=== PATIENT | female | born 1965 | race Caucasian/White ===

== ENCOUNTER 2017-02-11 08:56 | Emergency (ER) | payer BC ==
[2017-02-11 09:30] VITALS: BP 125/86
[2017-02-11] MEDS ORDERED: predniSONE 20 MG Tab PO STA (10:34)
--- NOTE | 2017-02-11 10:41 | EDM.PDOC ---
ED HPI GENERAL MEDICAL PROBLEM - General Chief Complaint: ENT Problem Stated Complaint: FEVER AND SWELLING FOR 5 WEEKS Time Seen by Provider: 02/11/17 09:22 Source of Information: Reports: Patient, Family (), RN Notes Reviewed History Limitations: Reports: No Limitations - History of Present Illness INITIAL COMMENTS - FREE TEXT/NARRATIVE: The patient states that she has had a low-grade fever (around 99) for the past 5 weeks. On 01/11/2017, she states that she developed facial and neck swelling, with difficulty swallowing. She states that she saw her PCP, Dr. Tinoco, on Sunday , 01/15/2017. He reported a CT scan of the neck and sinuses, as well as an ultrasound of the neck. She was found to have a goiter. She was prescribed Levaquin over the concern that there might be an infection, however, the patient had an adverse reaction of difficulty breathing and throat tightness. She went back to Dr. Tinoco, who prescribed a Z-Jarad. When she saw him an additional time, he refer the patient to an ENT and Outsole Rounder - she has an appointment to see the ENT on 02/20/2017, and Outsole Rounder on 03/12/2017. The patient takes acyclovir on an as-needed basis for herpes, and over concern that her symptoms might be related to esophageal herpes, she started taking acyclovir again. She is not sure if this has helped. She then saw Dr. Culver this past 02/09/2017. He barely felt that the patient's symptoms were due to a hormonal imbalance, including an elevated T4 level, therefore prescribed T3 for 30 days. The patient is to follow-up with the ENT as previously referred, then returned to him. She is to stop her Prempro , and she is not receiving any more Kenalog shots, which she receives for allergies and arthritis. In the meantime, the patient states that she found on the Internet some symptoms of diphtheria, and believes that she has all of the symptoms of diphtheria, and therefore has diphtheria. She now presents requesting testing for diphtheria. Here in the ED, the patient is afebrile. Throat Pain Score (Numeric/FACES): 3 - Related Data Allergies Allergy/AdvReac Type Severity Reaction Status Date / Time amoxicillin Allergy Swelling Verified 07/07/15 12:34 clavulanic acid Allergy Swelling Verified 07/07/15 12:35 clindamycin Allergy Shortness Verified 07/07/15 12:37 of Breath levofloxacin [From Levaquin] Allergy Airway Verified 02/11/17 09:32 Tightness ceftriaxone AdvReac Other Verified 07/07/15 12:38 escitalopram AdvReac Lethargy Verified 07/07/15 12:37 tramadol AdvReac Change Verified 07/07/15 12:36 Mental Status Home Meds: Home Meds . [No Known Home Meds] 02/11/17 [History] Past Medical History HEENT History: Reports: Allergic Rhinitis, Sinusitis Musculoskeletal History: Reports: Osteoarthritis (knees) Endocrine/Metabolic History: Reports: Hyperthyroidism (Graves disease) - Infectious Disease History Infectious Disease History: Reports: Herpes - Past Surgical History HEENT Surgical History: Reports: Eye Surgery (Bilateral, for strabismus), Naso- Sinus Surgery (Septoplasty) Social & Family History - Family History Endocrine/Metabolic: Reports: Hyperthyroidism, Hypoparathyroidism, Hypothyroidism - Tobacco Use Smoking Status *Q: Current Every Day Smoker Years of Tobacco use: 27 Packs/Tins Daily: 0.5 - Caffeine Use Caffeine Use: Reports: None - Alcohol Use Alcohol Use History: Yes Alcohol Use Frequency: Socially - Recreational Drug Use Recreational Drug Use: No - Living Situation & Occupation Living situation: Reports: , with Spouse Occupation: Unemployed ED ROS GENERAL - Review of Systems Review Of Systems: See Below Constitutional: Reports: No Symptoms HEENT: Reports: Other (Facial and neck swelling, as per the HPI) Respiratory: Reports: No Symptoms Cardiovascular: Reports: No Symptoms Endocrine: Reports: No Symptoms GI/Abdominal: Reports: No Symptoms : Reports: No Symptoms Musculoskeletal: Reports: No Symptoms Skin: Reports: No Symptoms Neurological: Reports: No Symptoms Psychiatric: Reports: No Symptoms Hematologic/Lymphatic: Reports: No Symptoms Immunologic: Reports: No Symptoms ED EXAM, NEURO - Physical Exam Exam: See Below Exam Limited By: No Limitations General Appearance: Alert, WD/WN, No Apparent Distress Eye Exam: Bilateral Eye: Normal Inspection Ears: Normal External Exam, Normal Canal, Hearing Grossly Normal, Normal TMs Nose: Normal Inspection, Normal Mucosa, No Blood Throat/Mouth: Normal Inspection, Normal Lips, Normal Teeth, Normal Gums, Normal Oropharynx, Normal Voice, No Airway Compromise Head Exam: Atraumatic, Normocephalic, Facial Swelling (mild/subtle) Neck: Supple, Non-Tender, Full Range of Motion, Other (Mild soft tissue swelling. No erythema.). No: Lymphadenopathy (L), Lymphadenopathy (R) Respiratory/Chest: No Respiratory Distress, Lungs Clear, Normal Breath Sounds, No Accessory Muscle Use Cardiovascular: Normal Peripheral Pulses, Regular Rate, Rhythm, No Gallop, No JVD, No Murmur, No Rub GI/Abdominal: Normal Bowel Sounds, Soft, Non-Tender, No Organomegaly, No Distention, No Abnormal Bruit, No Mass (Female) Exam: Deferred Rectal (Female) Exam: Deferred Neurological: Alert, No Motor/Sensory Deficits, Oriented x 3 Back Exam: Normal Inspection, Full Range of Motion, NT Extremities: Normal Inspection, Normal Range of Motion, No Pedal Edema, Normal Capillary Refill Psychiatric: Normal Affect Skin Exam: Warm, Dry, Intact, Normal Color, No Rash Course - Vital Signs Last Recorded V/S: Last Vital Signs Temp 37.3 C 02/11/17 09:21 Pulse 80 02/11/17 09:21 Resp 18 02/11/17 09:21 BP 125/86 02/11/17 09:21 Pulse Ox 99 02/11/17 09:21 - Re-Assessments/Exams Free Text/Narrative Re-Assessment/Exam: 02/11/17 10:57 The cause of the patient's facial and neck swelling is unclear - I am concerned about an anatomic inlet obstruction, however, the patient is already being worked up by Dr. Tinoco, Dr. Culver, and has appointments to follow-up with ENT on 02/20/2017 and an Outsole Rounder on 03/12/2017. The patient is here to be tested for diphtheria, however, testing for diphtheria includes scraping some of the pseudomembrane in the posterior oropharynx and nasopharynx. On examination, the patient has no such pseudomembrane, in fact, I do not see any oropharyngeal abnormalities whatsoever. I cannot therefore test her for diphtheria, as she does not have diphtheria. This was explained to the patient and her , with satisfaction. Departure - Departure Time of Disposition: 10:58 Disposition: Home, Self-Care 01 Condition: Good Clinical Impression: Facial swelling - Discharge Information Referrals: Meghan Culver [Primary Care Provider] - Forms: ED Department Discharge Additional Instructions: You were seen in the ER for facial and neck swelling, and a concern for having diphtheria. On examination, we see no pseudomembranes that would be present if you have diphtheria. We cannot test for diphtheria, as testing involves sampling the pseudomembrane, which you do not have. We recommend you keep your appointments with the ENT on 02/20/2017 and the datapower consultant on 03/12/2017. If any other problems, please do not hesitate to return to the ER.
== END 2017-02-11 11:14 | disposition home or self-care (01) ==
LOC: JD.ED 08:56
DX: R22.0 Localized swelling, mass and lump, head (principal); E05.90 Thyrotoxicosis, unspecified without thyrotoxic crisis or storm; F17.210 Nicotine dependence, cigarettes, uncomplicated; Z88.1 Allergy status to other antibiotic agents; Z88.5 Allergy status to narcotic agent; Z88.8 Allergy status to other drugs, medicaments and biological substances
CPT/HCPCS: 99282; 99283

== ENCOUNTER 2018-04-23 06:54 | Day surgery (SDC) | payer BC ==
[~2018-04-23 06:54] MED LIST: Lactated Ringers 1,000 ML IV SCH; Lidocaine 1%/Sod Bicarbonate in NS 8.4% 1 ML Syringe IDERM PRN; Sodium Chloride 0.9% 10 ML Syringe FLUSH PRN
[2018-04-23] MEDS ORDERED: Ondansetron 4 MG/2 ML SDV ONE (07:04)
[2018-04-23] MEDS ORDERED: Rocuronium 50 MG/5 ML Vial ONE (07:04)
[2018-04-23] MEDS ORDERED: Lidocaine 1% 4 ML ONE (07:04)
[2018-04-23] MEDS ORDERED: Dexamethasone 4 MG/ML 5 ML MDV ONE (07:05)
[2018-04-23] MEDS ORDERED: Propofol 200 MG/20 ML SDV ONE (07:05)
[2018-04-23] MEDS ORDERED: Midazolam 1 MG/ML 2 ML SDV ONE (07:05)
[2018-04-23] MEDS ORDERED: fentaNYL 250 MCG/5 ML SDV ONE (07:05)
[2018-04-23] MEDS ORDERED: Albuterol 0.083% 2.5 MG/3 ML Neb Soln NEB SCH (07:20)
[2018-04-23] MEDS ORDERED: Acetaminophen 325 MG Tab PO SCH (07:25)
--- NOTE | 2018-04-23 07:26 | PCM.PREANE ---
Preanesthetic Assessment - Anesthesia/Transfusion/Family Hx Anesthesia History: Prior Anesthesia Without Reaction Family History of Anesthesia Reaction: No Transfusion History: No Prior Transfusion(s) - Review of Systems General: No Symptoms Pulmonary: No Symptoms, Cough Cardiovascular: No Symptoms Gastrointestinal: No Symptoms Neurological: No Symptoms, Seizure (as a baby had seizures and went away) Other: Reports: Thyroid Problems, Sinus Problem, Depression, Anxiety - Physical Assessment NPO Status Date: 04/22/18 NPO Status Time: 21:00 Pulse: 66 O2 Sat by Pulse Oximetry: 98 Respiratory Rate: 16 Blood Pressure: 93/71 Temperature: 98.5 F Height: 5 ft 6 in Weight: 62.596 kg ASA Class: 2 Mental Status: Alert & Oriented x3 Airway Class: Mallampati = 1 Dentition: Reports: Dentures (top), Partial (bottom) Thyro-Mental Finger Breadths: 3 Mouth Opening Finger Breadths: 3 ROM/Head Extension: Full Lungs: Clear to Auscultation, Normal Respiratory Effort Cardiovascular: Regular Rate, Regular Rhythm - Lab Values: urine hcg neg this am hgb 13.7 plt 218 - Allergies Allergies/Adverse Reactions: Allergies Allergy/AdvReac Type Severity Reaction Status Date / Time amoxicillin Allergy Other Verified 04/22/18 11:49 clavulanic acid Allergy Other Verified 04/22/18 11:49 clindamycin Allergy Itching Verified 04/22/18 11:49 levofloxacin [From Levaquin] Allergy Airway Verified 04/22/18 11:49 Tightness Penicillins Allergy Other Verified 04/22/18 11:49 ceftriaxone AdvReac Other Verified 04/22/18 11:49 escitalopram AdvReac Other Verified 04/22/18 11:49 tramadol AdvReac Change Verified 04/22/18 11:49 Mental Status - Blood Blood Available: No - Acknowledgements Anesthesia Type Planned: General Anesthesia Pt an Appropriate Candidate for the Planned Anesthesia: Yes Alternatives and Risks of Anesthesia Discussed w Pt/Guardian: Yes Pt/Guardian Understands and Agrees with Anesthesia Plan: Yes PreAnesthesia Questionnaire HEENT History: Reports: Sinusitis, Other (See Below) Other HEENT History: Sore throat Cardiovascular History: Reports: None, Other (See Below) (once was told she has a murmur) Respiratory History: Reports: Other (See Below) Other Respiratory History: Cough Gastrointestinal History: Reports: Inflammatory Bowel Disease (colitis), Other ( See Below) Other Gastrointestinal History: Abdominal pain Genitourinary History: Reports: UTI, Recurrent, Other (See Below) Other Genitourinary History: Dysuria, hematuria OBSERVER ELECTRICAL PROSPECTING History: Reports: Other (See Below) Other OB/BYN History: Decreased libido, vaginal discharge, pruritis of vulva Musculoskeletal History: Reports: None Neurological History: Reports: None Psychiatric History: Reports: None Endocrine/Metabolic History: Other Endocrine/Metabolic History: Grave's disease Hematologic History: Reports: None Immunologic History: Reports: None Oncologic (Cancer) History: Reports: None Dermatologic History: Reports: None - Infectious Disease History Infectious Disease History: Reports: None - Past Surgical History Head Surgeries/Procedures: Reports: None HEENT Surgical History: Reports: Other (See Below) Other HEENT Surgeries/Procedures: Septoplasty blephroplasty Cardiovascular Surgical History: Reports: None Respiratory Surgical History: Reports: None GI Surgical History: Reports: None, Colonoscopy Female Surgical History: Reports: Breast Biopsy Endocrine Surgical History: Reports: None Neurological Surgical History: Reports: None Musculoskeletal Surgical History: Reports: None Oncologic Surgical History: Reports: None Dermatological Surgical History: Reports: None - SUBSTANCE USE Smoking Status *Q: Current Every Day Smoker (26 years) Tobacco Use Within Last Twelve Months: Cigarettes Second Hand Smoke Exposure: Yes Days Per Week of Alcohol Use: 5 Number of Drinks Per Day: 3 (beer or vodka) Total Drinks Per Week: 15 Recreational Drug Use History: No - HOME MEDS Home Medications: Home Meds ALPRAZolam [Alprazolam] 0.25 mg PO DAILY PRN 04/22/18 [History] Acyclovir 400 mg PO BID PRN 04/22/18 [History] Acyclovir [Zovirax 5% Oint] 1 applic TOP Q3H PRN 04/22/18 [History] Fluconazole [Diflucan] 150 mg PO ASDIRECTED PRN 04/22/18 [History] Levothyroxine [Sythroid] 100 mcg PO DAILY 04/22/18 [History] Liothyronine [Cytomel] 5 mcg PO DAILY 04/22/18 [History] Montelukast [Singulair] 10 mg PO BEDTIME 04/22/18 [History] Venlafaxine HCl [Venlafaxine HCl ER] 37.5 mg PO DAILY 04/22/18 [History] - CURRENT (IN HOUSE) MEDS Current Meds: Current Medications Albuterol (Proventil Neb Soln) 2.5 mg NEB ONETIME APOORVA Lactated Ringer's (Ringers, Lactated) 1,000 mls @ 125 mls/hr IV ASDIRECTED APOORVA Stop: 04/23/18 23:00 Lidocaine/Sodium Bicarbonate (Buffered Lidocaine 1% In Ns 8.4%) 0.25 ml IDERM ONETIME PRN PRN Reason: Prior to IV Start Stop: 04/23/18 18:00 Sodium Chloride (Saline Flush) 10 ml FLUSH ASDIRECTED PRN PRN Reason: Keep Vein Open Stop: 04/23/18 18:00 Discontinued Medications Dexamethasone (Dexamethasone) Confirm Administered Dose 20 mg .ROUTE .STK-MED ONE Stop: 04/23/18 07:06 Fentanyl (Sublimaze) Confirm Administered Dose 250 mcg .ROUTE .STK-MED ONE Stop: 04/23/18 07:06 Lidocaine HCl (Xylocaine-Mpf 1%) Confirm Administered Dose 4 mls @ as directed .ROUTE .STK-MED ONE Stop: 04/23/18 07:05 Midazolam HCl (Versed 1 Mg/Ml) Confirm Administered Dose 2 mg .ROUTE .STK-MED ONE Stop: 04/23/18 07:06 Ondansetron HCl (Zofran) Confirm Administered Dose 4 mg .ROUTE .STK-MED ONE Stop: 04/23/18 07:05 Propofol (Diprivan 20 Ml) Confirm Administered Dose 200 mg .ROUTE .STK-MED ONE Stop: 04/23/18 07:06 Rocuronium Lexa (Zemuron) Confirm Administered Dose 50 mg .ROUTE .STK-MED ONE Stop: 04/23/18 07:05
[2018-04-23] MEDS ORDERED: Bupivacaine 0.5% 30 ML SDV ONE (07:31)
[2018-04-23] MEDS ORDERED: ceFAZolin 1 GM Vial ONE (08:02)
[2018-04-23] MEDS ORDERED: Ketamine 500 mg/10 ML MDV ONE (08:18)
[2018-04-23] MEDS ORDERED: fentaNYL 100 MCG/2 ML SDV IVPUSH PRN (08:24)
[2018-04-23] MEDS ORDERED: Meperidine 50 MG/ML Vial IVPUSH PRN (08:24)
[2018-04-23] MEDS ORDERED: Ondansetron 4 MG/2 ML SDV IVPUSH PRN (08:24)
[2018-04-23] MEDS ORDERED: HYDROmorphone 0.5 MG/0.5 ML Syringe IVPUSH PRN (08:24)
[2018-04-23] MEDS ORDERED: Lactated Ringers 1,000 ML ONE (08:44)
[2018-04-23] MEDS ORDERED: HYDROmorphone 0.5 MG/0.5 ML Syringe ONE (09:02)
[2018-04-23] MEDS ORDERED: Ketorolac 30 MG/ML SDV ONE (09:15)
[2018-04-23] MEDS ORDERED: Neostigmine Methylsulfate 1 MG/ML 5 ML Syringe ONE (09:17)
--- NOTE | 2018-04-23 09:51 | PCM.POSTAN ---
POST ANESTHESIA ASSESSMENT - MENTAL STATUS Mental Status: Alert, Oriented - VITAL SIGNS Pulse Rate: 103 SaO2: 97 Resp Rate: 12 Blood Pressure: 119/66 Temperature: 97.7 F - RESPIRATORY Respiratory Status: Respiratory Rate WNL, Airway Patent, O2 Saturation Stable, Supplemental Oxygen - CARDIOVASCULAR CV Status: Pulse Rate WNL, Blood Pressure Stable - GASTROINTESTINAL GI Status: No Symptoms - PAIN Pain Score: 4 - POST OP HYDRATION Hydration Status: Adequate & Stable
--- NOTE | 2018-04-23 09:52 | PCM.OPNOTE ---
- General Post-Op/Procedure Note Date of Surgery/Procedure: 04/23/18 Operative Procedure(s): Laparoscopy with removal of left tube and ovary, laparoscopy with lysis of adhesions, hysteroscopy with endometrial biopsy. Pre Op Diagnosis: Postmenopausal bleeding, left lower quadrant pain, cervical stenosis Post-Op Diagnosis: Same plus adhesions peritoneal, right paratubal cyst Anesthesia Technique: General ET Tube Primary Surgeon: Goldy Lopez Secondary Surgeon: Francis Ramsey Anesthesia Provider: Germain Moran Funeral Assistant: Paige Adame (PAS) Funeral Assistant: Meghan Victor (MS4) Reason Funeral Assistant Was Necessary: Assist in surgery, retraction, decrease comorbidity and mortality Role of Funeral Assistant: Assist in surgery, retraction, decrease comorbidity and mortality Fluid Replacement, Intraop: 1,450 Output, Urine Amount: 10 EBL in mLs: 20 Drain/Tube Comments:: Briggs catheter placed during surgery and removed after surgery. Complications: None Condition: Good Free Text/Narrative:: Patient was transported to operating room and placed under general anesthesia with endotracheal intubation the low dorsal lithotomy position. SCDs in place and functioning prior surgery vancomycin 1 g given preoperatively after discussion with anesthesia and pharmacy because of her multiple allergies. At examination under anesthesia uterus anterior no adnexal masses palpated. Uterine manipulator was placed and later removed for hysteroscopy with endometrial biopsy. Briggs catheter placed gravity drainage and removed after surgery. The umbilicus was injected inferiorly with 2 mL of 0.5% Marcaine without epinephrine and a vertical incision made in pneumoperitoneum was obtained and the 5 mm trocar introduced without difficulty prompt visualization of pelvic organs was accomplished. There was a right paratubal cyst the left tube and ovary were identified no obvious abnormalities but patient has had pain on the left side for years. Her were adhesions above the cecum to the anterior abdominal wall the liver and gallbladder appeared normal. The appendix appeared normal. The anterior and posterior cul-de-sacs were normal. There was a small paratubal cyst in addition to the pedunculated paratubal cyst on the right side. Right ovary appeared atrophic consistent with patient's age. A midline incision was made transverse after injecting 2 mL of 0.5% Marcaine without epinephrine. The midline trocar 5 mm was introduced subsequently replaced with 12 mm trocar to remove the tube and ovary after surgery was completed. 5 mm trocar was also introduced in the left flank 2 fingerbreadths above and medial to the superior iliac crest. Transillumination was performed and no vessel seen injecting 2 mL of 0.5% Marcaine incision made and 5 mm trocar introduced. The uterus appeared normal. The adhesions of the colon to the anterior abdominal wall were lysed with Endo seal. The appendix appeared normal as noted above. Right paratubal cyst was then grasped and transected with the Endo seal. The left tube and ovary were then grasped the infundibulopelvic ligament crossclamped activated in size with Endo seal. Proceeding towards the uterus crossclamping activating and incising until the tube and ovary were able to be removed at the fundus of the uterus. Hemostasis was obtained no bleeding encountered. Sponge needle pack instrument and sharp count correct 2 and the midline incision was closed after having introduced the Endo bag and removing the tube and ovary through the 12 mm port. No bleeding encountered the anterior fascia was approximated with 0 Vicryl interrupted suture. The left flank 5 mm port removed without difficulty. There was no bleeding from either port removal. Pneumoperitoneum was reduced and the umbilical port removed. The incisions were closed with 3-0 Monocryl subcuticular. Dermabond applied. Hysteroscopy was then performed dilating the cervix to accommodate the hysteroscope examination of the endometrial cavity revealed no polyps, endometrium appeared atrophic. Both tubal ostia were visualized. Utilizing Christiano curet endometrial samples were attempted to be obtained however scant tissue because of the atrophic endometrium. The sponge needle pack asthma sharp count correct times one on completion of the hysteroscopy. Photographs were taken: Image 001 left round ligament and fallopian tube Image 002 shows the left ovary below the left fallopian tube Image 003 shows the paratubal cyst on the right side stalk just to the center of the manipulator. Image 004 shows better view of the stalk of the paratubal cyst at the center of the picture and right fallopian tube and tubo-ovarian ligament and round ligament at the top of the picture Image 005 shows the right ovary. Image 006 shows again right ovary and right paratubal cyst. Image 007 shows anterior cul-de-sac free of adhesions and endometriosis Image 008 shows posterior cul-de-sac with no endometriosis or adhesions Image 009 gallbladder and liver normal with no perihepatic adhesions. Image 010 shows surface of the liver and diaphragm with no adhesions Image 011 shows adhesions right lower quadrant. Image 012 shows additional adhesions in the right flank. Image 013 removal of the adhesions being accomplished with Endo seal Image 014 shows a normal appendix "J-shaped" Image 015 shows the right paratubal cyst being removed at the stalk. Image 016 shows the left adnexa after removal of the tube and ovary. Image 017 shows the midline trocar removal site with no bleeding Image 018 shows the left flank trocar removal site with no bleeding. Image 019 shows the left tubal ostium Image 020 shows the right tubal ostium Image 0-1 shows the fundus of the endometrial cavity no polyps atrophic appearing endometrium. Patient was transported postanesthesia care unit in satisfactory condition no blood transfusions were required.
--- NOTE | 2018-04-23 10:35 | PCM48HPAN ---
Post Anesthesia Note - EVALUATION WITHIN 48HRS OF ANESTHETIC Vital Signs in Normal Range: Yes Patient Participated in Evaluation: Yes Respiratory Function Stable: Yes Airway Patent: Yes Cardiovascular Function Stable: Yes Hydration Status Stable: Yes Pain Control Satisfactory: Yes Nausea and Vomiting Control Satisfactory: Yes (some nausea- alcohol wipe helped) Mental Status Recovered: Yes
[2018-04-23] MEDS ORDERED: Haloperidol Lactate 5 MG/ML SDV IVPUSH ONE (11:06)
[2018-04-23] MEDS ORDERED: Scopolamine 1.5 MG Transdermal Patch TOP SCH (11:38)
[2018-04-23 12:29] VITALS: BP 88/55
== END 2018-04-23 13:20 | disposition home or self-care (01) ==
LOC: JD.SDS 06:54
PROVIDERS: ATTEND Obstetrics & Gynecology
DX: N95.0 Postmenopausal bleeding (principal); N83.8 Other noninflammatory disorders of ovary, fallopian tube and broad ligament; N88.2 Stricture and stenosis of cervix uteri; F17.210 Nicotine dependence, cigarettes, uncomplicated; E78.5 Hyperlipidemia, unspecified; E03.9 Hypothyroidism, unspecified; F41.9 Anxiety disorder, unspecified; Z88.1 Allergy status to other antibiotic agents; Z88.0 Allergy status to penicillin; Z88.8 Allergy status to other drugs, medicaments and biological substances; Z79.899 Other long term (current) drug therapy
CPT/HCPCS: 36415; 58558; 58661; 81025; 85025; 94640; A9270; J1100; J1170; J1630; J1885; J2250; J2405; J2704; J2710; J3010; J3490; J7120; 00840; 88305; J0690; J2001

== ENCOUNTER 2022-11-27 08:25 | Day surgery (SDC) | payer BC, MEDICARE ==
[~2022-11-27 08:25] MED LIST changes: +Acetaminophen 325 MG Tab PO SCH; +Lidocaine 1% 4 ML ONE; +Morphine 8 MG, EPINEPHrine 0.3 MG, Cefuroxime 750 MG, Ketorolac 30 MG, Sodium Chloride ... PRN; +Morphine PF 10 MG/10 ML SDV ONE; +Pregabalin 25 MG Cap PO SCH; +Propofol 200 MG/20 ML SDV ONE; +Sodium Chloride 0.9% 10 ML Syringe FLUSH SCH; +Tranexamic Acid 1,000 MG/10 ML Vial ONE; +Vancomycin 1 GM SDV ONE; +oxyCODONE ER 10 MG TAB.ER PO SCH
[2022-11-27] MEDS ORDERED: Bupivacaine 0.25% 10 ML SDV ONE (08:53)
[2022-11-27] MEDS ORDERED: Triamcinolone Acetonide 40 MG/ML 1 ML SDV ONE (08:53)
[2022-11-27] MEDS ORDERED: Ropivacaine 0.5% 5 MG/ML 30 ML SDV ONE (09:13)
[2022-11-27] MEDS ORDERED: Midazolam 1 MG/ML 2 ML SDV ONE (09:29)
[2022-11-27] MEDS ORDERED: Ketamine 500 mg/10 ML MDV ONE (09:31)
[2022-11-27] MEDS ORDERED: Propofol 200 MG/20 ML SDV ONE (09:31)
[2022-11-27] MEDS ORDERED: fentaNYL 100 MCG/2 ML SDV ONE (09:39)
[2022-11-27] MEDS ORDERED: ceFAZolin 2 GM Vial ONE (09:52)
[2022-11-27] MEDS ORDERED: ePHEDrine 50 MG/ML SDV ONE (10:00)
[2022-11-27] MEDS ORDERED: Ondansetron 4 MG/2 ML SDV ONE (10:02)
[2022-11-27] MEDS ORDERED: Dexamethasone 4 MG/ML 5 ML MDV ONE (10:03)
[2022-11-27] MEDS ORDERED: Ondansetron 4 MG/2 ML SDV IVPUSH PRN (10:14)
[2022-11-27] MEDS ORDERED: Ketorolac 30 MG/ML SDV IVPUSH SCH (14:00)
[2022-11-27] MEDS ORDERED: Scopolamine 1.5 MG Transdermal Patch TOP ONE (15:00)
[2022-11-27 16:14] VITALS: BP 106/68; PULSE 75
== END 2022-11-27 14:22 | disposition home or self-care (01) ==
LOC: JD.SDS 08:25
PROVIDERS: ATTEND Orthopaedic Surgery
DX: M17.0 Bilateral primary osteoarthritis of knee (principal); F17.210 Nicotine dependence, cigarettes, uncomplicated; E03.9 Hypothyroidism, unspecified; J44.9 Chronic obstructive pulmonary disease, unspecified; E78.5 Hyperlipidemia, unspecified; F41.9 Anxiety disorder, unspecified; F32.A Depression, unspecified; L11.1 Transient acantholytic dermatosis [Grover]; E55.9 Vitamin D deficiency, unspecified; E78.00 Pure hypercholesterolemia, unspecified; K58.9 Irritable bowel syndrome, unspecified; M81.0 Age-related osteoporosis without current pathological fracture; Z88.0 Allergy status to penicillin; Z88.1 Allergy status to other antibiotic agents; Z88.8 Allergy status to other drugs, medicaments and biological substances; Z79.899 Other long term (current) drug therapy; Z79.890 Hormone replacement therapy; Z98.890 Other specified postprocedural states
CPT/HCPCS: 0055T; 20610; 27447; 73560; 97110; 97116; 97161; A9270; C1713; C1776; J0171; J0690; J0697; J1100; J1885; J2250; J2270; J2274; J2405; J2704; J2795; J3010; J3301; J3370; J3490; J7120; 01402; 64447

== ENCOUNTER 2023-04-19 20:35 | Emergency (ER) | payer MEDICARE, OTHER ==
[2023-04-19] MEDS ORDERED: LORazepam 2 MG/ML SDV IVPUSH ONE (20:53)
[2023-04-19 21:05] LABS: BASOPHILS ABSOLUTE AUTO 0.1 K/mm3 (0.0-0.2); BASOPHILS PERCENT AUTO 0.5 % (0.0-1.0); EOSINOPHILS PERCENT AUTO 0.3 % (0.0-6.0); HEMATOCRIT 41.8 % (37.0-47.0); HEMOGLOBIN 14.4 gm/dl (12.0-16.0); IMMATURE GRAN ABSOLUTE AUTO 0.05 K/mm3 (0.00-0.05); IMMATURE GRAN PERCENT AUTO 0.5 % (0.0-0.4); LYMPHOCYTES ABSOLUTE AUTO 3.3 K/mm3 (1.0-4.8); MEAN CORPUSCULAR HEMOGLOBIN 32.4 pg (28.0-32.0); MEAN CORPUSCULAR HGB CONC 34.4 g/dl (32.0-36.0); MEAN CORPUSCULAR VOLUME 93.9 fl (83.0-99.0); MEAN PLATELET VOLUME 9.2 fl (9.4-12.3); MONOCYTES ABSOLUTE AUTO 0.7 K/mm3 (0.0-0.8); MONOCYTES PERCENT AUTO 7.5 % (0.0-8.0); NEUTROPHILS PERCENT AUTO 55.2 % (41.0-71.0); PLATELET COUNT,PLT 186 K/mm3 (150-400); RED BLOOD CELL COUNT 4.45 M/mm3 (4.10-5.30); WHITE BLOOD CELL COUNT,WBC 9.15 K/mm3 (3.9-11.3)
[2023-04-19 21:23] LABS: PROTHROMBIN TIME 10.7 SECONDS (9.7-12.0)
[2023-04-19 21:24] LABS: A/G RATIO 1.4 (1-2); ALBUMIN 4.6 g/dl (3.4-5.0); ANION GAP 17.7 (5-15); BILIRUBIN TOTAL 0.5 mg/dL (0.2-1.0); BUN/CREATININE RATIO 4.4 (14-18); CALCIUM 10.8 mg/dL (8.5-10.1); CREATININE 0.9 mg/dL (0.55-1.02); EST CRCL DRUG DOSING (CG) 55.42 mL/min
[2023-04-19 21:54] LABS: POTASSIUM,K 2.7 mEq/L (3.5-5.1)
[2023-04-19] MEDS ORDERED: Potassium Chloride 20 MEQ Tab.ER PO ONE (22:07)
[2023-04-19] MEDS ORDERED: Sodium Chloride 0.9% 1,000 ML IV ONE (22:21)
[2023-04-19] MEDS: Potassium Chloride 10 MEQ in Premix Bag 1 BAG IV SCH ×2 (22:37→23:39)
[2023-04-19 22:47] LABS: APPEARANCE,URINE CLEAR (Clear); BILIRUBIN,URINE NEGATIVE (Negative); COLOR,URINE YELLOW (Yellow); GLUCOSE,URINE NEGATIVE (Negative); KETONES,URINE NEGATIVE (Negative); LEUKOCYTE ESTERASE,URINE NEGATIVE (Negative); NITRITE,URINE NEGATIVE (Negative); OCCULT BLOOD,URINE TRACE-LYSED (Negative); PROTEIN,URINE NEGATIVE (Negative); UROBILINOGEN,URINE 0.2 (0.2-1.0)
[2023-04-19 23:07] LABS: RBC,URINE 0-5 /hpf (0-5); SQUAMOUS EPITHELIAL CELLS,UR 0-5 /hpf (0-5); WBC,URINE 0-5 /hpf (0-5)
[2023-04-19 23:08] LABS: BACTERIA,URINE FEW /hpf (FEW); MUCUS,URINE FEW /hpf (FEW)
[2023-04-20] MEDS: Potassium Chloride 10 MEQ in Premix Bag 1 BAG IV SCH ×2 (01:29→04:54)
[2023-04-20 05:39] LABS: ANION GAP 10.9 (5-15); BUN/CREATININE RATIO 5.7 (14-18); CREATININE 0.7 mg/dL (0.55-1.02); EST CRCL DRUG DOSING (CG) 71.26 mL/min; POTASSIUM,K 3.9 mEq/L (3.5-5.1)
[2023-04-20] MEDS ORDERED: Magnesium Sulfate/Water 2 GM/50 ML BAG IV ONE (05:47)
[2023-04-20 08:36] VITALS: BP 122/75; PULSE 71
== END 2023-04-20 08:36 | disposition still patient (30) ==
LOC: JD.ED 20:35
DX: R07.9 Chest pain, unspecified (principal); Z88.0 Allergy status to penicillin; Z88.1 Allergy status to other antibiotic agents; Z88.8 Allergy status to other drugs, medicaments and biological substances; E03.9 Hypothyroidism, unspecified; Z79.899 Other long term (current) drug therapy
CPT/HCPCS: 36415; 71045; 80048; 80053; 81001; 83735; 84484; 85025; 85610; 93005; 96361; 96365; 96366; 96367; 96375; 96376; 99285; A9270; J2060; J3475; J3480; J7030; 93010; 99284

== ENCOUNTER 2023-04-23 19:32 | Emergency (ER) | payer MEDICARE, OTHER ==
[2023-04-23] MEDS ORDERED: LORazepam 2 MG/ML SDV IM ONE (19:59)
[2023-04-23 20:19] LABS: BASOPHILS ABSOLUTE AUTO 0.1 K/mm3 (0.0-0.2); BASOPHILS PERCENT AUTO 0.6 % (0.0-1.0); EOSINOPHILS ABSOLUTE AUTO 0.1 K/mm3 (0.0-0.4); EOSINOPHILS PERCENT AUTO 0.7 % (0.0-6.0); HEMATOCRIT 38.2 % (37.0-47.0); HEMOGLOBIN 13.1 gm/dl (12.0-16.0); IMMATURE GRAN ABSOLUTE AUTO 0.06 K/mm3 (0.00-0.05); IMMATURE GRAN PERCENT AUTO 0.7 % (0.0-0.4); LYMPHOCYTES ABSOLUTE AUTO 3.2 K/mm3 (1.0-4.8); LYMPHOCYTES PERCENT AUTO 37.7 % (24.0-44.0); MEAN CORPUSCULAR HEMOGLOBIN 32.8 pg (28.0-32.0); MEAN CORPUSCULAR HGB CONC 34.3 g/dl (32.0-36.0); MEAN CORPUSCULAR VOLUME 95.7 fl (83.0-99.0); MONOCYTES ABSOLUTE AUTO 0.7 K/mm3 (0.0-0.8); NEUTROPHILS ABSOLUTE AUTO 4.5 K/mm3 (1.8-7.7); NEUTROPHILS PERCENT AUTO 52.3 % (41.0-71.0); PLATELET COUNT,PLT 171 K/mm3 (150-400); RED BLOOD CELL COUNT 3.99 M/mm3 (4.10-5.30); WHITE BLOOD CELL COUNT,WBC 8.53 K/mm3 (3.9-11.3)
[2023-04-23 20:46] LABS: A/G RATIO 1.3 (1-2); ALBUMIN 4.4 g/dl (3.4-5.0); ANION GAP 12.5 (5-15); BILIRUBIN TOTAL 0.4 mg/dL (0.2-1.0); CALCIUM 10.1 mg/dL (8.5-10.1); CREATININE 0.8 mg/dL (0.55-1.02); EST CRCL DRUG DOSING (CG) 61.81 mL/min; POTASSIUM,K 3.5 mEq/L (3.5-5.1); PROTEIN TOTAL,TP 7.7 g/dl (6.4-8.2)
[2023-04-23] MEDS ORDERED: LORazepam 0.5 MG Tab PO ONE (21:29)
[2023-04-23 22:26] VITALS: BP 119/72; PULSE 72
== END 2023-04-23 22:11 | disposition other institution (70) ==
LOC: JD.ED 19:32
DX: F41.9 Anxiety disorder, unspecified (principal); J45.909 Unspecified asthma, uncomplicated; E03.9 Hypothyroidism, unspecified; Z79.899 Other long term (current) drug therapy; Z88.0 Allergy status to penicillin; Z88.1 Allergy status to other antibiotic agents; Z88.8 Allergy status to other drugs, medicaments and biological substances
CPT/HCPCS: 36415; 80053; 84484; 85025; 93005; 96372; 99284; A9270; J2060; 93010; 99282

== ENCOUNTER 2024-02-20 08:12 | Day surgery (SDC) | payer MEDICARE, OTHER ==
[~2024-02-20 08:12] MED LIST changes: -Acetaminophen 325 MG Tab PO SCH; +Dexamethasone 4 MG/ML 5 ML MDV ONE; +EPINEPHrine 1 MG/ML SDV ONE; -Lactated Ringers 1,000 ML IV SCH; +Lactated Ringers 1,000 ML ONE; -Lidocaine 1%/Sod Bicarbonate in NS 8.4% 1 ML Syringe IDERM PRN; -Morphine 8 MG, EPINEPHrine 0.3 MG, Cefuroxime 750 MG, Ketorolac 30 MG, Sodium Chloride ... PRN; +Morphine 8 MG, EPINEPHrine 0.3 MG, Ketorolac 30 MG, Sodium Chloride 0.9% 7.9 ML PRN; -Morphine PF 10 MG/10 ML SDV ONE; +Ondansetron 4 MG/2 ML SDV ONE; -Pregabalin 25 MG Cap PO SCH; +Ropivacaine 0.5% 5 MG/ML 30 ML SDV ONE; -Tranexamic Acid 1,000 MG/10 ML Vial ONE; -Vancomycin 1 GM SDV ONE; +ceFAZolin 2 GM Vial ONE; +fentaNYL 250 MCG/5 ML SDV ONE; -oxyCODONE ER 10 MG TAB.ER PO SCH
[2024-02-20] MEDS ORDERED: Midazolam 1 MG/ML 2 ML SDV ONE (08:25)
[2024-02-20] MEDS: Lactated Ringers 1,000 ML IV SCH (08:45)
[2024-02-20] MEDS: Pregabalin 25 MG Cap PO ONE (09:20)
[2024-02-20] MEDS: oxyCODONE ER 10 MG TAB.ER PO ONE (09:20)
[2024-02-20] MEDS: Acetaminophen 325 MG Tab PO ONE (09:20)
[2024-02-20] MEDS ORDERED: Propofol 200 MG/20 ML SDV ONE (09:25)
[2024-02-20] MEDS ORDERED: dexmedeTOMIDine HCl 200 MCG/2 ML SDV ONE (09:47)
[2024-02-20] MEDS ORDERED: Ketamine 500 mg/10 ML MDV ONE (09:50)
[2024-02-20] MEDS ORDERED: ePHEDrine 50 MG/ML SDV ONE (09:51)
[2024-02-20] MEDS ORDERED: diphenhydrAMINE 50 MG/ML SDV ONE (10:11)
[2024-02-20] MEDS ORDERED: Ketorolac 30 MG/ML SDV ONE (10:34)
[2024-02-20] MEDS ORDERED: Ondansetron 4 MG/2 ML SDV IVPUSH PRN (10:36)
[2024-02-20] MEDS: Morphine 8 MG, EPINEPHrine 0.3 MG, Cefuroxime 750 MG, Ketorolac 30 MG, Sodium Chloride ... PRN (10:48)
[2024-02-20] MEDS: Vancomycin 1 GM SDV ONE (10:54)
[2024-02-20] MEDS: Tranexamic Acid 1,000 MG/10 ML Vial ONE (10:54)
[2024-02-20] MEDS: fentaNYL 100 MCG/2 ML SDV IVPUSH PRN (11:39)
[2024-02-20] MEDS: HYDROmorphone 0.5 MG/0.5 ML Syringe IVPUSH PRN (12:00)
[2024-02-20] MEDS: Acetaminophen/HYDROcodone 325-5 MG Tab PO PRN (12:57)
[2024-02-20 14:32] VITALS: BP 107/68; PULSE 65
== END 2024-02-20 13:55 | disposition home or self-care (01) ==
LOC: JD.SDS 08:12
PROVIDERS: ATTEND Orthopaedic Surgery
DX: M17.11 Unilateral primary osteoarthritis, right knee (principal); K21.9 Gastro-esophageal reflux disease without esophagitis; F41.9 Anxiety disorder, unspecified; J44.9 Chronic obstructive pulmonary disease, unspecified; F32.A Depression, unspecified; E78.00 Pure hypercholesterolemia, unspecified; F17.210 Nicotine dependence, cigarettes, uncomplicated; Z79.899 Other long term (current) drug therapy; Z88.0 Allergy status to penicillin; Z88.8 Allergy status to other drugs, medicaments and biological substances
CPT/HCPCS: 0055T; 27447; 64447; 73560; 97110; 97161; A9270; C1713; C1776; J0171; J0690; J0697; J1100; J1170; J1200; J1885; J2250; J2270; J2405; J2704; J2795; J3010; J3370; J3490; J7120; 01402

== ENCOUNTER 2025-05-23 14:25 | Emergency (ER) | payer MEDICARE ==
[2025-05-23 15:47] VITALS: BP 107/64; PULSE 74
[2025-05-23] MEDS ORDERED: Sodium Chloride 0.9% 10 ML Syringe FLUSH PRN (15:49)
[2025-05-23 16:05] LABS: BASOPHILS ABSOLUTE AUTO 0.0 K/mm3 (0.0-0.2); BASOPHILS PERCENT AUTO 0.3 % (0.0-1.0); EOSINOPHILS ABSOLUTE AUTO 0.0 K/mm3 (0.0-0.4); EOSINOPHILS PERCENT AUTO 0.0 % (0.0-6.0); IMMATURE GRAN ABSOLUTE AUTO 0.14 K/mm3 (0.00-0.05); IMMATURE GRAN PERCENT AUTO 1.6 % (0.0-0.4); LYMPHOCYTES ABSOLUTE AUTO 1.2 K/mm3 (1.0-4.8); LYMPHOCYTES PERCENT AUTO 13.1 % (24.0-44.0); MEAN PLATELET VOLUME 8.5 fl (9.4-12.3); MONOCYTES ABSOLUTE AUTO 0.5 K/mm3 (0.0-0.8); MONOCYTES PERCENT AUTO 5.2 % (0.0-8.0); NEUTROPHILS ABSOLUTE AUTO 7.2 K/mm3 (1.8-7.7); NEUTROPHILS PERCENT AUTO 79.8 % (41.0-71.0); NRBC ABSOLUTE 0.00 (0.00-0.02); NRBC PERCENT 0.0 % (0.0-0.2); PLATELET COUNT,PLT 212 K/mm3 (150-400); RED BLOOD CELL COUNT 3.98 M/mm3 (4.10-5.30); WHITE BLOOD CELL COUNT,WBC 8.98 K/mm3 (3.9-11.3)
[2025-05-23 16:17] LABS: APPEARANCE,URINE CLEAR (Clear); GLUCOSE,URINE NEGATIVE (Negative); OCCULT BLOOD,URINE 1+ (Negative)
[2025-05-23 16:34] LABS: A/G RATIO 1.3 (1-2); ALANINE AMINOTRANSFERASE,ALT 21 U/L (14-59); ASPARTATE AMNIOTRANSFERASE,AST 16 U/L (15-37); BILIRUBIN TOTAL 0.4 mg/dL (0.2-1.0); BLOOD UREA NITROGEN,BUN 6 mg/dL (7-18); CARBON DIOXIDE,CO2 26 mEq/L (21-32); CHLORIDE,CL 101 mEq/L (98-107); CREATININE 1.0 mg/dL (0.55-1.02); EST CRCL DRUG DOSING (CG) 55.31 mL/min; ESTIMATED GFR 64 mL/min (>60); GLUCOSE RANDOM 108 mg/dL (70-99); POTASSIUM,K 3.8 mEq/L (3.5-5.1); PROTEIN TOTAL,TP 7.0 g/dl (6.4-8.2); SODIUM,NA 138 mEq/L (136-145)
[2025-05-23 16:38] LABS: TROPONIN I HIGH SENSITIVITY < 4 pg/mL (<=51)
[2025-05-23 16:41] LABS: SQUAMOUS EPITHELIAL CELLS,UR 0-5 /hpf (0-5)
== END 2025-05-23 18:25 | disposition home or self-care (01) ==
LOC: JD.ED 14:25
DX: J02.9 Acute pharyngitis, unspecified (principal); R07.9 Chest pain, unspecified; J45.909 Unspecified asthma, uncomplicated; E03.9 Hypothyroidism, unspecified; Z88.0 Allergy status to penicillin; Z88.8 Allergy status to other drugs, medicaments and biological substances; Z79.899 Other long term (current) drug therapy; Z79.890 Hormone replacement therapy
CPT/HCPCS: 36415; 71045; 71045-26; 80053; 81001; 83690; 84484; 85025; 86308; 87428-QW; 87651; 93005; 93010; 99283; 99285